=== PATIENT | male | born 2000 | race Hispanic/Latino ===

== ENCOUNTER 2023-04-26 11:05 | Emergency (ER) | payer OTHER, SELFPAY ==
--- OUTSIDE RECORDS SUMMARY | 2023-04-26 11:10 | XMS REPORT | Continuity of Care Document ---
:2000 Author Organization [facility] t Address [address] [facility] [address] [place] [id number] Care Team Providers Name Role Phone ROSEY GREY Attending Clinician Unavailable WHITNEY COPE Attending Clinician Unavailable Problems This patient has no known problems. Allergies, Adverse Reactions, Alerts Allergy Allergy Status Severity Reaction(s) Onset Inactive Treating Comm ents Source Name Type Date Date Clinician LATEX DRUG Active Rash 2014-11 [facility] INGR[facility]I 0-23 ity of 00:00: [address] Medications This patient has no known medications. Procedures This patient has no known procedures. Encounters Start End Encounter Admission Attending Care Care Encounter Source Date/Time Date/Time Type Type Clinicians Facility Department ID 2020-10-28 2020-10-28 Outpatient Jocelynn GREY [facility] [id number] [facility] 13:20:00 13:20:00 ROSEY gardner [facility] 2020-04-22 2020-04-22 Outpatient Jocelynn COPE [facility] [id number] [facility] 08:40:00 08:40:00 WHITNEY gardner [facility] 2020-03-02 2020-03-02 Outpatient R [facility] [id number] [facility] 11:00:00 11:00:00 ROSEY vern [facility] Results This patient has no known results.
[2023-04-26 12:06] LABS: SARS-CoV-2 Antigen Rapid Res Negative (Negative)
--- NOTE | 2023-04-26 12:16 | RAD REPORT ---
EXAM DESCRIPTION: Beatrice Vogt (2 Views)04/26/2023 12:10 pm CLINICAL HISTORY: Chest pain COMPARISON: 2018 FINDINGS: The lungs appear clear of acute infiltrate. The heart is normal size IMPRESSION: No acute abnormalities displayed
--- NOTE | 2023-04-26 12:38 | ER ---
Nurse's Notes [facility] Name: Jay Harmon Age: 22 yrs Sex: Male : 2000 Arrival Date: 04/26/2023 Time: 11:05 Bed 30 Private MD: Diagnosis: Acute upper respiratory infection, unspecified Presentation: 04/26 11:29 Chief complaint: Patient states: C/O chest pain, shortness of breath, cough, diarrhea, iw nausea. pt also complains of fever with vomiting and chills. pt states covid exposure 1 week ago. 11:38 Coronavirus screen: Client presents with at least one sign or symptom that may indicate iw coronavirus-19. Ebola Screen: Patient negative for fever greater than or equal to 101.5 degrees Fahrenheit, and additional compatible Ebola Virus Disease symptoms Patient denies exposure to infectious person. No symptoms or risks identified at this time. Initial Sepsis Screen: Does the patient meet any 2 criteria? No. Patient's initial sepsis screen is negative. Does the patient have a suspected source of infection? No. Patient's initial sepsis screen is negative. Risk Assessment: Do you want to hurt yourself or someone else? Patient reports no desire to harm self or others. Onset of symptoms was April 20, 2023. 11:38 Acuity: MIKY 3 iw 11:38 Method Of Arrival: Ambulatory iw Historical: - Allergies: 14:08 No Known Allergies; kb3 - Home Meds: 14:08 None [Active]; kb3 - PMHx: 14:08 None; kb3 - PSHx: 14:08 None; kb3 - Immunization history:: Adult Immunizations up to date, Client reports having NOT received the Covid vaccine. Last tetanus immunization: up to date. - Social history:: Smoking status: Patient denies any tobacco usage or history of. Screenin:20 [facility] ED Fall Risk Assessment (Adult) History of falling in the last 3 months, kb3 including since admission No falls in past 3 months (0 pts) Confusion or Disorientation No (0 pts) Intoxicated or Sedated No (0 pts) Impaired Gait No (0 pts) Mobility Assist Device Used No (0 pt) Altered Elimination No (0 pt) Score/Fall Risk Level 0 - 2 = Low Risk Oriented to surroundings. Abuse screen: Denies threats or abuse. Denies injuries from another. Nutritional screening: No deficits noted. Tuberculosis screening: No symptoms or risk factors identified. Assessment: 12:10 General: Appears in no apparent distress. Behavior is calm, cooperative, Received care kb3 of pt from lobby without distress. Pt reports flu-like symptoms including cough, congestion, chest soreness x2 days. . 12:10 Pain: Complains of pain in chest Pain does not radiate. Pain currently is 6 out of 10 kb3 on a pain scale. Quality of pain is described as aching, dull, Pain began 2-3 days ago. Cardiovascular: Reports chest pain, Heart tones S1 S2 Capillary refill < 3 seconds Respiratory: Breath sounds are clear bilaterally. Vital Signs: 11:48 BP 140 / 73; Pulse 54; Resp 16; Pulse Ox 100% on R/A; Weight 95.25 kg; Height 6 ft. 2 zm in. ; Pain 6/10; 12:20 BP 125 / 70; Pulse 62; Resp 18; Pulse Ox 99% ; kb3 11:48 Body Mass Index 26.96 (95.25 kg, 187.96 cm) zm 11:48 Pain Scale: Adult zm ED Course: 11:09 Patient arrived in ED. am2 11:14 Humberto Hyatt MD is Attending Physician. rn 11:14 Destiney Emerson F[facility]-C is [facility]. kb 11:38 Triage completed. iw 11:38 Arm band placed on. iw 11:48 EKG done, by ED staff, reviewed by Humberto Hyatt MD. zm 11:48 SARS-COV-2 Antigen Rapid Sent. zm 11:48 Flu Sent. zm 12:12 Chest Pa And Lat (2 Views) XRAY In Process Unspecified. EDMS 12:20 Patient has correct armband on for positive identification. kb3 12:20 No provider procedures requiring assistance completed. Patient did not have IV access kb3 during this emergency room visit. Patient maintains SpO2 saturation greater than 95% on room air. Administered Medications: No medications were administered Medication: 12:20 VIS not applicable for this client. kb3 Outcome: 12:37 Discharge ordered by MD. kb 12:50 Discharged to home ambulatory. kb3 12:50 Condition: stable kb3 12:50 Discharge instructions given to patient, Instructed on discharge instructions, follow up and referral plans. medication usage, Demonstrated understanding of instructions, follow-up care, medications. 14:10 Patient left the ED. kb3 Signatures: Dispatcher [employer] Destiney Eaton, SLIM COLINDRES-Luz Robles RN RN iw Nieto, Roman, MD MD rn Moreno, Amanda am2 Martinez, Zaina zm Bradberry, Kelly, RN RN kb3
--- NOTE | 2023-04-26 12:38 | EDPHYS ---
Physician Documentation [facility] Name: Jay Harmon Age: 22 yrs Sex: Male : 2000 Arrival Date: 04/26/2023 Time: 11:05 Bed 30 Private MD: ED Physician Humberto Hyatt HPI: 04/26 12:48 This 22 yrs old Male presents to ER via Ambulatory with complaints of Chest kb Pain, Shortness Of Breath, Runny Nose, Cough. 12:49 The patient or guardian reports cough, that is intermittent, described as moderate, kb difficulty breathing. Onset: The symptoms/episode began/occurred 3 day(s) ago. Severity of symptoms: At their worst the symptoms were mild, in the emergency department the symptoms are unchanged. Modifying factors: The symptoms are alleviated by nothing, the symptoms are aggravated by nothing. Associated signs and symptoms: Pertinent positives: chest pain, rhinorrhea. The patient has not experienced similar symptoms in the past. The patient has not recently seen a physician. 12:57 Pt presents for cough, congestion, dyspnea, chest pain that started 3 days ago. Reports kb girlfriend had covid last week. Historical: - Allergies: 14:08 No Known Allergies; kb3 - Home Meds: 14:08 None [Active]; kb3 - PMHx: 14:08 None; kb3 - PSHx: 14:08 None; kb3 - Immunization history:: Adult Immunizations up to date, Client reports having NOT received the Covid vaccine. Last tetanus immunization: up to date. - Social history:: Smoking status: Patient denies any tobacco usage or history of. ROS: 12:49 Constitutional: Negative for fever, chills, and weight loss. kb 12:49 ENT: Positive for rhinorrhea, sinus congestion. 12:49 Cardiovascular: Positive for chest pain. 12:49 Respiratory: Positive for cough, shortness of breath, Negative for dyspnea on exertion, hemoptysis, orthopnea, pleurisy, sputum production, wheezing. 12:49 All other systems are negative. Exam: 11:48 ECG was reviewed by the Attending Physician. kb 12:49 Constitutional: This is a well developed, well nourished patient who is awake, alert, kb and in no acute distress. Head/Face: Normocephalic, atraumatic. ENT: Moist Mucous membranes Cardiovascular: Regular rate and rhythm with a normal S1 and S2. No gallops, murmurs, or rubs. No pulse deficits. Respiratory: Respirations even and unlabored. No increased work of breathing. Talking in full sentences Abdomen/GI: Soft, non-tender. No distention Skin: Warm, dry with normal turgor. Normal color. MS/ Extremity: Pulses equal, no cyanosis. Neurovascular intact. Full, normal range of motion. Neuro: Awake and alert, GCS 15, oriented to person, place, time, and situation. Moves all extremities. Normal gait. Vital Signs: 11:48 BP 140 / 73; Pulse 54; Resp 16; Pulse Ox 100% on R/A; Weight 95.25 kg; Height 6 ft. 2 zm in. ; Pain 6/10; 12:20 BP 125 / 70; Pulse 62; Resp 18; Pulse Ox 99% ; kb3 11:48 Body Mass Index 26.96 (95.25 kg, 187.96 cm) zm 11:48 Pain Scale: Adult zm MDM: 11:14 Patient medically screened. rn 12:49 Differential Diagnosis: Bronchitis Influenza Upper Respiratory Infection Viral Syndrome kb Pneumonia Other covid. Data reviewed: vital signs, nurses notes. Counseling: I had a detailed discussion with the patient and/or guardian regarding: the historical points, exam findings, and any diagnostic results supporting the discharge/admit diagnosis, lab results, radiology results, the need for outpatient follow up, a family practitioner, to return to the emergency department if symptoms worsen or persist or if there are any questions or concerns that arise at home. 04/26 11:24 Order name: Flu; Complete Time: 12:37 kb 04/26 11:24 Order name: SARS-COV-2 Antigen Rapid; Complete Time: 12:09 kb 04/26 11:24 Order name: Chest Pa And Lat (2 Views) XRAY; Complete Time: 12:37 kb 04/26 11:24 Order name: EKG; Complete Time: 11:24 kb 04/26 11:24 Order name: EKG - Nurse/Tech; Complete Time: 11:48 kb EC:48 Rate is 47 beats/min. Rhythm is regular. QRS [place] is Normal. [place] interval is normal at kb 152 msec. QRS interval is normal at 108 msec. QT interval is normal at 391 msec. Administered Medications: No medications were administered Disposition: 16:29 Co-signature as Attending Physician, Humberto Hyatt MD I reviewed the patient's care rn provided by the Advanced Practice Provider and agree with the diagnosis and treatment plan. Disposition Summary: 04/26/23 12:37 Discharge Ordered Location: Home kb Condition: Stable kb Diagnosis - Acute upper respiratory infection, unspecified kb Followup: kb - With: Emergency Department - When: As needed - Reason: Worsening of condition Followup: kb - With: Private Physician - When: 2 - 3 days - Reason: Recheck today's complaints, Continuance of care, Re-evaluation by your physician Discharge Instructions: - Discharge Summary Sheet kb - Upper Respiratory Infection, Adult, [id number] kb Forms: - Medication Reconciliation Form kb - Thank You Letter kb - Antibiotic Education kb - Prescription Opioid Use kb - Work release form kb3 Signatures: Dispatcher [employer] EDDestiney Chandra, SLIM COLINDRES-Humberto Mcnair MD MD rn Bradberry, Kelly, RN RN kb3
[2023-04-26 14:28] VITALS: BP 125/70; O2SAT 99
--- NOTE | 2023-04-27 12:10 | EKG ---
Test Date: 2023-04-26 Test Time: 11:46:06 Silk Screen Printer: MARY MEASUREMENT RESULTS: Intervals: Rate: 47 [place]: 152 QRSD: 108 QT: 442 QTc: 391 [place]: P: 62 [place]: 152 QRS: 43 T: 58 INTERPRETIVE STATEMENTS: Marked sinus bradycardia Abnormal ECG No previous ECG available for comparison Electronically Signed On 04-27-23 12:06:12 CDT by Marvin Peng
== END 2023-04-26 14:10 | disposition home or self-care (01) ==
LOC: ER 11:05
DX: J06.9 Acute upper respiratory infection, unspecified (principal); Z20.822 Contact with and (suspected) exposure to COVID-19
CPT/HCPCS: 36415; 71046; 87804; 87811; 93005; 99284

== ENCOUNTER 2024-05-06 13:41 | Emergency (ER) | payer SELFPAY ==
--- OUTSIDE RECORDS SUMMARY | 2024-05-06 13:42 | XMS REPORT | Continuity of Care Document ---
Author Name Unknown Address [address] [facility]. [address] [place] [address] [facility] thconnect Address [address] [facility] [address] [place] [address] Care Team Providers Care Dictating Machine Typist Name Role Phone ROSEY GREY Attending Clinician Unavailable WHITNEY COPE Attending Clinician Unavailable Allergies, Adverse Reactions, Alerts Allergy Name Allergy Type Status Severity Reaction(s) Onset Date Inactive Date Treating Clinician Comments Source LATEX DRUG INGREDI Active Rash 2014-11 00:00: 00 [facility] Encounters Start Date/Time End Date/Time Encounter Type Admission Type Attending Clinicians Care Facility Care Department Encounter ID Source 2020-10-28 13:20:00 2020-10-28 13:20:00 Outpatient ROSEY WEAVER [facility] [id number] [facility] 2020-04-22 08:40:00 2020-04-22 08:40:00 Outpatient WHITNEY GALVEZ [facility] [id number] [facility] 2020-03-02 11:00:00 2020-03-02 11:00:00 Outpatient ROSEY WEAVER [facility] [id number] [facility]
[2024-05-06] MEDS ORDERED: NA CHLORIDE 0.9% 2,000 ML ONE (14:17)
[2024-05-06 14:27] LABS: Absolute Eosinophils 0.2 K/uL (0-0.5); Absolute Lymphocytes (CBC) 1.9 K/uL (0.7-4.9); Absolute Monocytes 0.5 K/uL (0.1-1.3); Absolute Neutrophil 2.5 K/uL (1.8-8.0); Basophils % 0.7 % (0-1.3); Eosinophils % 3.4 % (0-4.4); Hematocrit 40.6 % (39.6-49.0); Hemoglobin 14.2 g/dL (13.6-17.9); Lymphocytes % 36.8 % (15.3-44.8); MCH 31.9 pg (27.0-35.0); MCV 91.2 fL (80-100); MPV 6.8 fL (7.6-11.3); Monocytes % 10.5 % (3.3-12.3); Neutrophils % 48.6 % (41.7-73.7); Nucleated Red Blood Cells % 0.1 % (0-0); Platelets 303 thou/uL (152-406); RBC Red Blood Cell Count 4.46 M/uL (4.33-5.43); Red Cell Distribution Width 13.4 % (12.1-15.2)
[2024-05-06 14:43] LABS: Albumin 3.7 g/dL (3.4-5.0); Albumin/Globulin Ratio 1.2 (1.1-1.8); Anion Gap 7.8 mEq/L (5.0-15.0); Bilirubin Total 0.5 mg/dL (0.2-1.0); Magnesium 1.9 mg/dL (1.6-2.4); Potassium 3.8 mEq/L (3.5-5.1); Protein, Total 6.7 g/dL (6.4-8.2)
--- NOTE | 2024-05-06 15:31 | ER ---
Nurse's Notes [facility] Name: Jay Harmon Jr Age: 23 yrs Sex: Male : 2000 Arrival Date: 05/06/2024 Time: 13:41 Bed 15 Private MD: Diagnosis: Dehydration Presentation: 05/06 14:05 Chief complaint: Patient states: N/V/D x2 WK. Coronavirus screen: At this time, the bp client does not indicate any symptoms associated with coronavirus-19. Ebola Screen: No symptoms or risks identified at this time. Initial Sepsis Screen: Does the patient meet any 2 criteria? No. Patient's initial sepsis screen is negative. Does the patient have a suspected source of infection? No. Patient's initial sepsis screen is negative. Risk Assessment: Do you want to hurt yourself or someone else? Patient reports no desire to harm self or others. Onset of symptoms is unknown. 14:05 Method Of Arrival: Ambulatory bp 14:05 Acuity: MIKY 3 bp Triage Assessment: 14:06 General: Appears in no apparent distress. Behavior is cooperative, appropriate for age, bp anxious. Pain: Complains of pain in GENERALIZED. EENT: No deficits noted. Neuro: No deficits noted. Cardiovascular: No deficits noted. Respiratory: No deficits noted. GI: Abdomen is non-distended, Reports diarrhea, nausea, vomiting. : No signs and/or symptoms were reported regarding the genitourinary system. Derm: No deficits noted. Musculoskeletal: No deficits noted. Historical: - Allergies: 14:06 Latex, Natural Rubber; bp - Home Meds: 14:06 None [Active]; bp - PMHx: 14:06 None; bp - Immunization history:: Adult Immunizations up to date. - Infectious Disease History:: Denies. - Social history:: Smoking status: Patient denies any tobacco usage or history of. - Family history:: not pertinent. Screenin:07 [place] ED Fall Risk Assessment (Adult) History of falling in the last 3 months, bp including since admission No falls in past 3 months (0 pts). Abuse screen: Denies threats or abuse. Denies injuries from another. Nutritional screening: No deficits noted. Tuberculosis screening: No symptoms or risk factors identified. Assessment: 14:48 General: Appears comfortable, Behavior is calm, cooperative, appropriate for age. ap3 Neuro: Level of Consciousness is awake, alert, obeys commands, Oriented to person, place, time, situation. Cardiovascular: Patient's skin is warm and dry. Respiratory: Airway is patent Respiratory effort is even, unlabored, Respiratory pattern is regular, symmetrical. 14:48 General: Reports fatigue for >3 days. GI: Reports diarrhea, nausea, vomiting, ap3 intermittently for 2 weeks. Vital Signs: 14:05 BP 133 / 69; Pulse 57; Resp 16; Temp 98; Pulse Ox 100% ; bp 14:43 BP 124 / 86; Pulse 54; Pulse Ox 100% on R/A; ap3 ED Course: 13:45 Patient arrived in ED. rg4 13:46 Joshua Garcia MD is Attending Physician. rt 14:06 Triage completed. bp 14:06 Arm band placed on. bp 14:07 Patient has correct armband on for positive identification. bp 14:22 Initial lab(s) drawn, by me, sent to lab. Inserted saline lock: 20 gauge in left aw1 antecubital area, using aseptic technique. 14:31 Salome Hernandez, RN is Primary Nurse. ap3 14:50 Provided Education on: call light education. ap3 15:58 No provider procedures requiring assistance completed. IV discontinued, intact, ap3 bleeding controlled, No redness/swelling at site. Pressure dressing applied. Administered Medications: 14:27 Drug: NS 0.9% IV 2000 ml IV at 2 bolus Per protocol; 2000 mL bolus Route: IV; Rate: 2 rs5 bolus; Site: left antecubital; 15:58 Follow up: IV Status: Completed infusion; IV Intake: 2000ml ap3 Medication: 15:59 VIS not applicable for this client. ap3 Intake: 15:58 IV: 2000ml; Total: 2000ml. ap3 Outcome: 15:30 Discharge ordered by MD. rt 15:58 Discharged to home ambulatory, with family, ap3 15:58 Condition: good 15:58 Discharge instructions given to patient, Instructed on discharge instructions, follow up and referral plans. Demonstrated understanding of instructions, follow-up care, 15:59 Patient left the ED. ap3 Signatures: Kacey Cid rg4 Javid Lima RN RN bp Salome Hernandez RN RN ap3 Joshua Garcia MD MD rt Israel Wood RN RN rs5 Yesica Whitmore aw1 Corrections: (The following items were deleted from the chart) 14:06 14:06 Allergies: No Known Allergies; bp bp 14:50 14:48 Respiratory: Airway is patent Respiratory effort is even, unlabored, Respiratory ap3 pattern is regular, symmetrical, ap3
--- NOTE | 2024-05-06 15:31 | EDPHYS ---
Physician Documentation [facility] Name: Jay Harmon Jr Age: 23 yrs Sex: Male : 2000 Arrival Date: 05/06/2024 Time: 13:41 Bed 15 Private MD: ED Physician Joshua Garcia HPI: 05/06 14:13 This 23 yrs old Male presents to ER via Ambulatory with complaints of rt Dehydration. 14:13 Patient presents to the ED with reported dehydration. Patient has had nausea, vomiting, rt diarrhea for about 2 weeks now. States he has been working outside in the heat, states that he believes he is dehydrated. Feels weak, has abdominal cramping, muscle pain. Denies other acute complaints, symptoms are moderate in severity, no other aggravating or alleviating factors.. Historical: - Allergies: 14:06 Latex, Natural Rubber; bp - Home Meds: 14:06 None [Active]; bp - PMHx: 14:06 None; bp - Immunization history:: Adult Immunizations up to date. - Infectious Disease History:: Denies. - Social history:: Smoking status: Patient denies any tobacco usage or history of. - Family history:: not pertinent. ROS: 14:13 Cardiovascular: Negative for chest pain, palpitations, and edema, Respiratory: Negative rt for shortness of breath, cough, wheezing, and pleuritic chest pain, Skin: Negative for injury, rash, and discoloration, Neuro: Negative for headache, weakness, numbness, tingling, and seizure, Psych: Negative for depression, anxiety, suicide ideation, homicidal ideation, and hallucinations, 14:13 Constitutional: Positive for body aches, Negative for fever, 14:13 Abdomen/GI: Positive for nausea, vomiting, and diarrhea, Exam: 14:13 Constitutional: This is a well developed, well nourished patient who is awake, alert, rt and in no acute distress. Head/Face: Normocephalic, atraumatic. Chest/axilla: Normal chest wall appearance and motion. Nontender with no deformity. No lesions are appreciated. Cardiovascular: Regular rate and rhythm with a normal S1 and S2. No gallops, murmurs, or rubs. Normal PMI, no JVD. No pulse deficits. Respiratory: Lungs have equal breath sounds bilaterally, clear to auscultation and percussion. No rales, rhonchi or wheezes noted. No increased work of breathing, no retractions or nasal flaring. Abdomen/GI: Soft, non-tender, with normal bowel sounds. No distension or tympany. No guarding or rebound. No evidence of tenderness throughout. Skin: Warm, dry with normal turgor. Normal color with no rashes, no lesions, and no evidence of cellulitis. MS/ Extremity: Pulses equal, no cyanosis. Neurovascular intact. Full, normal range of motion. Neuro: Awake and alert, GCS 15, oriented to person, place, time, and situation. Cranial nerves II-XII grossly intact. Motor strength 5/5 in all extremities. Sensory grossly intact. Cerebellar exam normal. Normal gait. 14:13 ENT: Dry mucous membranes. Vital Signs: 14:05 BP 133 / 69; Pulse 57; Resp 16; Temp 98; Pulse Ox 100% ; bp 14:43 BP 124 / 86; Pulse 54; Pulse Ox 100% on R/A; ap3 MDM: 14:11 Patient medically screened. rt 15:32 Differential Diagnosis Dehydration, electrolyte disturbance, rhabdomyolysis. Data rt reviewed: vital signs, nurses notes, lab test result(s). I considered the following discharge prescriptions or medication management in the emergency department Medications were administered in the Emergency Department. See MAR. Independent interpretation of the following test(s) in the Emergency Department. Test considered but Not performed: CT: Benign abdominal examination, CT scan is not indicated. Counseling: I had a detailed discussion with the patient and/or guardian regarding the historical points, exam findings, and any diagnostic results supporting the discharge/admit diagnosis, lab results, the need for outpatient follow up. Response to treatment: the patient's symptoms have markedly improved after treatment. 05/06 14:11 Order name: CBC with Diff; Complete Time: 14:53 rt 05/06 14:11 Order name: CMP; Complete Time: 14:53 rt 05/06 14:11 Order name: CPK; Complete Time: 14:53 rt 05/06 14:11 Order name: Magnesium; Complete Time: 14:53 rt Administered Medications: 14:27 Drug: NS 0.9% IV 2000 ml IV at 2 bolus Per protocol; 2000 mL bolus Route: IV; Rate: 2 rs5 bolus; Site: left antecubital; 15:58 Follow up: IV Status: Completed infusion; IV Intake: 2000ml ap3 Disposition Summary: 05/06/24 15:30 Discharge Ordered Notes: Location: Home rt Problem: new rt Symptoms: have improved rt Condition: Stable rt Diagnosis - Dehydration rt Followup: rt - With: Private Physician - When: 2 - 3 days - Reason: Discharge Instructions: - Discharge Summary Sheet rt - Dehydration, Adult rt Forms: - Medication Reconciliation Form rt - Antibiotic Education rt - Prescription Opioid Use rt - Patient Portal Instructions rt - Leadership Thank You Letter rt Signatures: Dispatcher [employer] Javid Yoon RN RN bp Joshua Garcia MD MD rt Israel Wood RN RN rs5 Salome Hernandez RN ap3 Corrections: (The following items were deleted from the chart) 14:06 14:06 Allergies: No Known Allergies; bp bp
[2024-05-06 16:04] VITALS: TEMP 98; O2SAT 100
[2024-05-06 16:29] VITALS: BP 124/86
== END 2024-05-06 15:59 | disposition home or self-care (01) ==
LOC: ER 13:41
DX: E86.0 Dehydration (principal)
CPT/HCPCS: 36415; 80053; 82550; 83735; 85025; 96360; 96361; 99284; J7030

== ENCOUNTER 2024-08-04 11:40 | Emergency (ER) | payer SELFPAY ==
[~2024-08-04 11:40] MED LIST: ONDANSETRON 4 MG/2 ML VIAL ONE
--- OUTSIDE RECORDS SUMMARY | 2024-08-04 11:42 | XMS REPORT | Continuity of Care Document ---
Author Name Unknown Address [address] [facility]. [address] thconnect Address [address] [facility] [address] [place] [address] Care Team Providers Care Treasury Agent Name Role Phone ROSEY GREY Attending Clinician Unavailable WHITNEY COPE Attending Clinician Unavailable Allergies, Adverse Reactions, Alerts Allergy Name Allergy Type Status Severity Reaction(s) Onset Date Inactive Date Treating Clinician Comments Source LATEX DRUG INGREDI Active Rash 2014-11 00:00: 00 [facility] Encounters Start Date/Time End Date/Time Encounter Type Admission Type Attending Clinicians Care Facility Care Department Encounter ID Source 2020-10-28 13:20:00 2020-10-28 13:20:00 Outpatient ROSEY WEAVER [facility] [id number] [facility] 2020-04-22 08:40:00 2020-04-22 08:40:00 Outpatient WHITNEY GALVEZ [facility] [id number] [facility] 2020-03-02 11:00:00 2020-03-02 11:00:00 Outpatient ROSEY WEAVER [facility] [id number] [facility]
[2024-08-04] MEDS ORDERED: ONDANSETRON 4 MG/2 ML VIAL ONE (12:42)
[2024-08-04] MEDS ORDERED: NA CHLORIDE 0.9% 1,000 ML ONE (12:42)
[2024-08-04] MEDS ORDERED: FAMOTIDINE 20 MG/2 ML VIAL IV ONE (12:42)
[2024-08-04 13:04] LABS: Absolute Basophils 0.1 K/uL (0-0.5); Absolute Lymphocytes (CBC) 1.6 K/uL (0.7-4.9); Absolute Monocytes 0.5 K/uL (0.1-1.3); Basophils % 1.1 % (0-1.3); Eosinophils % 0.8 % (0-4.4); Hematocrit 41.1 % (39.6-49.0); Lymphocytes % 30.4 % (15.3-44.8); MCH 31.6 pg (27.0-35.0); MCV 92.8 fL (80-100); MPV 7.3 fL (7.6-11.3); Monocytes % 9.2 % (3.3-12.3); Neutrophils % 58.5 % (41.7-73.7); Platelets 279 thou/uL (152-406); RBC Red Blood Cell Count 4.42 M/uL (4.33-5.43); Red Cell Distribution Width 12.9 % (12.1-15.2)
[2024-08-04 13:20] LABS: Albumin 3.7 g/dL (3.4-5.0); Albumin/Globulin Ratio 1.2 (1.1-1.8); Anion Gap 11.5 mEq/L (5.0-15.0); Bilirubin Total 0.7 mg/dL (0.2-1.0); Potassium 3.5 mEq/L (3.5-5.1); Protein, Total 6.7 g/dL (6.4-8.2)
--- NOTE | 2024-08-04 13:50 | RAD REPORT ---
EXAM DESCRIPTION: CTAbdomen Pelvis W Contrast - 08/04/2024 1:41 pm CLINICAL HISTORY: Abdominal pain. ABD PAIN COMPARISON: No comparisons TECHNIQUE: CT imaging of the abdomen and pelvis was performed with 100 ml non-ionic IV contrast. All CT scans are performed using dose optimization technique as appropriate and may include automated exposure control or mA/KV adjustment according to patient size. FINDINGS: The lung bases are clear. The liver, spleen, pancreas, adrenal glands and kidneys are within normal limits. No bowel obstruction, free air, free fluid or abscess. Prominent retained stool throughout the colon with mild wall thickening. The appendix is normal. No evidence of significant lymphadenopathy. No suspicious bony findings. IMPRESSION: There is a prominent pattern of retained stool throughout the colon with mild wall thick ening suggesting mild colitis. Elsewhere, no acute finding is evident.
--- NOTE | 2024-08-04 14:38 | ER ---
Nurse's Notes [facility] Name: Jay Harmon Jr Age: 23 yrs Sex: Male : 2000 Arrival Date: 08/04/2024 Time: 11:40 Bed 2 Private MD: Diagnosis: Nausea with vomiting, unspecified;Colitis Presentation: 08/04 12:03 Chief complaint: Patient states: started to throw up this morning after going to work. tm6 Only had a [employer] taco and water this morning. Has not been able to stop throwing up. Having LLQ pain. Ebola Screen: Patient negative for fever greater than or equal to 101.5 degrees Fahrenheit, and additional compatible Ebola Virus Disease symptoms Patient denies exposure to infectious person. Patient denies travel to an Ebola-affected area in the 21 days before illness onset. No symptoms or risks identified at this time. Risk Assessment: Do you want to hurt yourself or someone else? Patient reports no desire to harm self or others. 12:03 Method Of Arrival: Ambulatory tm6 12:03 Acuity: MIKY 3 tm6 12:06 Coronavirus screen: Vaccine status: Patient reports being unvaccinated. Initial Sepsis tm6 Screen: Does the patient meet any 2 criteria? No. Patient's initial sepsis screen is negative. Does the patient have a suspected source of infection? No. Patient's initial sepsis screen is negative. Onset of symptoms was August 04, 2024. Triage Assessment: 12:06 General: Appears uncomfortable, Behavior is cooperative. Pain: Complains of pain in tm6 left lower quadrant Pain currently is 5 out of 10 on a pain scale. Pain began suddenly, 4 hours ago. EENT: No signs and/or symptoms were reported regarding the EENT system. Neuro: Level of Consciousness is awake, alert, obeys commands, Oriented to person, place, time, situation. Cardiovascular: Patient's skin is warm and dry. Respiratory: Airway is patent Respiratory effort is even, unlabored, Respiratory pattern is regular, symmetrical. GI: Abdomen is flat, non-distended, Reports lower abdominal pain, nausea, vomiting, since this morning. : No signs and/or symptoms were reported regarding the genitourinary system. Derm: No signs and/or symptoms reported regarding the dermatologic system. Musculoskeletal: No signs and/or symptoms reported regarding the musculoskeletal system. Historical: - Allergies: 12:04 Latex; tm6 - Immunization history:: Client reports having NOT received the Covid vaccine. - Infectious Disease History:: Denies. - Social history:: Smoking status: Reported history of juuling and/or vaping. Patient/guardian denies using alcohol. Screenin:50 [facility] ED Fall Risk Assessment (Adult) History of falling in the last 3 months, ph including since admission No falls in past 3 months (0 pts) Confusion or Disorientation No (0 pts) Intoxicated or Sedated No (0 pts) Impaired Gait No (0 pts) Mobility Assist Device Used No (0 pt) Altered Elimination No (0 pt) Score/Fall Risk Level 0 - 2 = Low Risk Oriented to surroundings, Maintained a safe environment, Hourly rounding (assess needs \T\ fall precautionary measures) done. Abuse screen: Denies threats or abuse. Denies injuries from another. Nutritional screening: No deficits noted. Tuberculosis screening: No symptoms or risk factors identified. Assessment: 12:50 General: Appears in no apparent distress. Behavior is calm, cooperative. Pain: ph Complains of pain in left upper quadrant and left lower quadrant. Neuro: Level of Consciousness is awake, alert, obeys commands, Oriented to person, place, time, situation. Cardiovascular: Capillary refill < 3 seconds in bilateral fingers Patient's skin is warm and dry. Respiratory: Airway is patent Respiratory effort is even, unlabored. GI: Abdomen is non-distended, Reports lower abdominal pain, upper abdominal pain, nausea, vomiting. Derm: Skin is pink, warm \T\ dry. 14:50 Reassessment: Patient appears in no apparent distress at this time. Patient and/or ph family updated on plan of care and expected duration. Pain level reassessed. Patient is alert, oriented x 3, equal unlabored respirations, skin warm/dry/pink. Vital Signs: 12:05 BP 136 / 75; Pulse 60; Resp 21; Temp 98.6(O); Pulse Ox 99% on R/A; Weight 79.38 kg; tm6 Height 6 ft. 1 in. ; Pain 5/10; 12:52 BP 126 / 80; Pulse 52; Resp 18; Pulse Ox 100% on R/A; ph 13:50 BP 127 / 86; Pulse 62; Resp 16; Pulse Ox 98% on R/A; ph 14:51 BP 122 / 78; Pulse 58; Resp 18; Temp 97; Pulse Ox 99% on R/A; ph 12:05 Body Mass Index 23.09 (79.38 kg, 185.42 cm) tm6 12:05 Pain Scale: Adult tm6 ED Course: 11:44 Patient arrived in ED. sj2 11:51 Destiney Emerson [facility]C [facility] kb 11:51 Joshua Garcia MD is Attending Physician. kb 12:04 Triage completed. tm6 12:06 Arm band placed on right wrist. tm6 12:31 Lola Kearns, BRANDIN is Primary Nurse. ph 12:49 Initial lab(s) drawn, by me, sent to lab. Inserted saline lock: 20 gauge in right ph forearm, using aseptic technique. Blood collected. Flushed with 10 mL NS. 12:51 Patient has correct armband on for positive identification. Call light in reach. Side ph rails up X 1. Pulse ox on. NIBP on. 13:43 CT Abd/Pelvis - IV Contrast Only In Process Unspecified. EDMS 14:50 No provider procedures requiring assistance completed. IV discontinued, intact, ph bleeding controlled, No redness/swelling at site. Pressure dressing applied. Administered Medications: 12:52 Drug: NS 0.9% IV 1000 ml IV at 1 bolus Per protocol; 1000 mL bolus Route: IV; Rate: 1 ph bolus; Site: right antecubital; 14:30 Follow up: Response: No adverse reaction; IV Status: Completed infusion; IV Intake: ph 1000ml 12:52 Drug: Famotidine IVP 20 mg IVP once; dilute with 10 mL 0.9% NaCl; give over 2 minutes ph Route: IVP; Site: right antecubital; 14:52 Follow up: Response: No adverse reaction ph 12:52 Drug: Ondansetron IVP 4 mg IVP once; over 2 minutes Route: IVP; Site: right antecubital;ph 14:52 Follow up: Response: No adverse reaction ph Medication: 12:51 VIS not applicable for this client. ph Intake: 14:30 IV: 1000ml; Total: 1000ml. ph Outcome: 14:37 Discharge ordered by . kb 14:51 Discharged to home ambulatory, with significant other, ph 14:51 Condition: good 14:51 Discharge instructions given to patient, Instructed on discharge instructions, follow up and referral plans. medication usage, Demonstrated understanding of instructions, follow-up care, medications, Prescriptions given X 3, 14:52 Patient left the ED. ph Signatures: Dispatcher [employer] EDDestiney Chandra, SLIM COLINDRES-Lola Acevedo RN RN Keven Blake RN RN 6 [facility]
--- NOTE | 2024-08-04 14:38 | EDPHYS ---
Physician Documentation [facility] Name: Jay Harmon Jr Age: 23 yrs Sex: Male : 2000 Arrival Date: 08/04/2024 Time: 11:40 Bed 2 Private MD: ED Physician Joshua Garcia HPI: 08/04 12:47 This 23 yrs old Male presents to ER via Ambulatory with complaints of Vomiting.kb 12:47 Pt is a 23 year old male who presents for vomiting that started this morning. States he kb ate a taco for breakfast, went to work and drank some water then started vomiting and hasn't stopped since. Denies diarrhea, fever. Reports lower abd pain. Historical: - Allergies: 12:04 Latex; tm6 - Immunization history:: Client reports having NOT received the Covid vaccine. - Infectious Disease History:: Denies. - Social history:: Smoking status: Reported history of juuling and/or vaping. Patient/guardian denies using alcohol. ROS: 12:47 Constitutional: As per HPI kb Exam: 12:47 Constitutional: This is a well developed, well nourished patient who is awake, alert, kb and in no acute distress. Head/Face: Normocephalic, atraumatic. ENT: Moist Mucous membranes Cardiovascular: Regular rate Respiratory: Respirations even and unlabored. No increased work of breathing. Talking in full sentences Skin: Warm, dry with normal turgor. Normal color. MS/ Extremity: Pulses equal, no cyanosis. Neurovascular intact. Full, normal range of motion. Neuro: Awake and alert, GCS 15, oriented to person, place, time, and situation. Moves all extremities. Normal gait. 12:47 Abdomen/GI: Inspection: abdomen appears normal, Bowel sounds: normal, Palpation: soft, in all quadrants, mild abdominal tenderness, in the left upper quadrant and left lower quadrant, Vital Signs: 12:05 BP 136 / 75; Pulse 60; Resp 21; Temp 98.6(O); Pulse Ox 99% on R/A; Weight 79.38 kg; tm6 Height 6 ft. 1 in. ; Pain 5/10; 12:52 BP 126 / 80; Pulse 52; Resp 18; Pulse Ox 100% on R/A; ph 13:50 BP 127 / 86; Pulse 62; Resp 16; Pulse Ox 98% on R/A; ph 14:51 BP 122 / 78; Pulse 58; Resp 18; Temp 97; Pulse Ox 99% on R/A; ph 12:05 Body Mass Index 23.09 (79.38 kg, 185.42 cm) tm6 12:05 Pain Scale: Adult tm6 MDM: 11:51 Patient medically screened. kb 12:47 Differential diagnosis: Nonspecific abd pain, gastritis, diverticulitis, viral kb gastroenteritis. Data reviewed: vital signs, nurses notes. Historians other than the Patient: Spouse/Significant Other: spouse. 14:37 Counseling: I had a detailed discussion with the patient and/or guardian regarding the kb historical points, exam findings, and any diagnostic results supporting the discharge/admit diagnosis, lab results, radiology results, the need for outpatient follow up, a family practitioner, to return to the emergency department if symptoms worsen or persist or if there are any questions or concerns that arise at home. 08/04 12:08 Order name: CBC with Diff; Complete Time: 13:09 kb 08/04 12:08 Order name: CMP; Complete Time: 13:21 kb 08/04 12:08 Order name: Lipase; Complete Time: 13:21 kb 08/04 12:08 Order name: CT Abd/Pelvis - IV Contrast Only; Complete Time: 13:53 kb 08/04 12:08 Order name: IV Saline Lock; Complete Time: 12:52 kb 08/04 12:08 Order name: Labs collected and sent; Complete Time: 12:52 kb 08/04 14:37 Order name: PO challenge; Complete Time: 14:42 kb Administered Medications: 12:52 Drug: NS 0.9% IV 1000 ml IV at 1 bolus Per protocol; 1000 mL bolus Route: IV; Rate: 1 ph bolus; Site: right antecubital; 14:30 Follow up: Response: No adverse reaction; IV Status: Completed infusion; IV Intake: ph 1000ml 12:52 Drug: Famotidine IVP 20 mg IVP once; dilute with 10 mL 0.9% NaCl; give over 2 minutes ph Route: IVP; Site: right antecubital; 14:52 Follow up: Response: No adverse reaction ph 12:52 Drug: Ondansetron IVP 4 mg IVP once; over 2 minutes Route: IVP; Site: right antecubital;ph 14:52 Follow up: Response: No adverse reaction ph Disposition: 17:21 Co-signature as Attending Physician, Joshua Garcia MD I reviewed the patient's care rt provided by the Advanced Practice Provider and agree with the diagnosis and treatment plan. Disposition Summary: 08/04/24 14:37 Discharge Ordered Notes: Location: Home kb Condition: Stable kb Diagnosis - Nausea with vomiting, unspecified kb - Colitis kb Followup: kb - With: Emergency Department - When: As needed - Reason: Worsening of condition Followup: kb - With: Private Physician - When: 2 - 3 days - Reason: Recheck today's complaints, Continuance of care, Re-evaluation by your physician Discharge Instructions: - Discharge Summary Sheet kb - Nausea and Vomiting, Adult, [id number] kb - Colitis kb Forms: - Medication Reconciliation Form kb - Antibiotic Education kb - Prescription Opioid Use kb - Patient Portal Instructions kb - Leadership Thank You Letter kb - Work release form ph Prescriptions: - Augmentin 875-125 mg Oral Tablet - take 1 tablet ORAL route every 12 hours for 10 days; 20 tablet; Refills: 0, kb Product Selection Permitted - Zofran 4 mg Oral tablet - take 1 tablet ORAL route every 6 hours As needed; 12 tablet; Refills: 0, kb Product Selection Permitted - dicyclomine 20 mg Oral tablet - take 1 tablet ORAL route 4 times per day As needed; 20 tablet; Refills: 0, kb Product Selection Permitted Signatures: Dispatcher [employer] EDMS Destiney Emerson, [employer]INTENA[employer]CE SUPERVISOR-C Lola Nath RN RN Joshua Garcia MD MD rt Keven Blake RN RN tm6 Corrections: (The following items were deleted from the chart) 12:08 12:08 CBC+H.LAB.BRZ ordered. EDMS EDMS 12:08 12:08 COMPREHENSIVE METABOLIC PANEL+C.LAB.BRZ ordered. EDMS EDMS 12:08 12:08 LIPASE+C.LAB.BRZ ordered. EDMS EDMS 12:08 12:08 Abdomen Pelvis W Con+CT.RAD.BRZ ordered. EDMS EDMS
[2024-08-04 15:19] VITALS: BP 122/78; TEMP 97; O2SAT 99
== END 2024-08-04 14:52 | disposition home or self-care (01) ==
LOC: ER 11:40
DX: K52.9 Noninfective gastroenteritis and colitis, unspecified (principal); R11.2 Nausea with vomiting, unspecified; F17.290 Nicotine dependence, other tobacco product, uncomplicated
CPT/HCPCS: 36415; 74177; 80053; 83690; 85025; 96361; 96374; 96375; 99284; J2405; J7030; Q9966